=== PATIENT | female | born 1985 | race Caucasian/White ===

== ENCOUNTER 2017-09-18 18:00 | Emergency (ER) | payer OTHER ==
[2017-09-18 18:22] VITALS: BP 128/84
--- NOTE | 2017-09-18 18:41 | UC ---
Skin Complaint HPI - HPI Summary HPI Summary: Patient is to urgent care today with a red swollen tender area on her left lower extremity. She states she got an insect bite then the day after she dropped a [place] and then developed redness pain swelling medial aspect of her left lower calf. Patient reports tender to walk the erythemic area is not itchy - History of Current Complaint Chief Complaint: UCLowerExtremity Time Seen by Provider: 09/18/17 18:24 Stated Complaint: INSECT BITE - L LEG Hx Obtained From: Patient Hx Last Menstrual Period: 09/17/17 ?: No Onset/Duration: Sudden Onset, Lasting Days - 5 Timing: Constant Pain Intensity: 6 Pain Scale Used: 0-10 Numeric Location: Discrete - medial left lower calf Character: Swelling, Redness Aggravating Factor(s): Nothing Alleviating Factor(s): Nothing Associated Signs & Symptoms: Positive: Negative - Allergy/Home Medications Allergies/Adverse Reactions: Allergies Allergy/AdvReac Type Severity Reaction Status Date / Time Penicillins Allergy Unknown Verified 09/18/17 18:16 Reaction Details Home Medications: Home Medications Ibuprofen TAB* [Advil TAB*] 800 mg PO Q6H PRN 09/18/17 [History Confirmed ] Multivitamin [Multivitamins] 1 cap PO DAILY 09/18/17 [History Confirmed 09/18/17 ] Review of Systems Constitutional: Negative Skin: Negative Eyes: Negative ENT: Negative Respiratory: Negative Cardiovascular: Negative Gastrointestinal: Negative Genitourinary: Negative Motor: Negative Neurovascular: Negative Musculoskeletal: Calf Tenderness - left swollen tender lower leg Neurological: Negative Psychological: Negative Is Patient Immunocompromised?: No All Other Systems Reviewed And Are Negative: Yes PMH/Surg Hx/FS Hx/Imm Hx Previously Healthy: Yes - Surgical History Surgical History: Yes Surgery Procedure, Year, and Place: 3 c-sections - Family History Known Family History: Positive: None - Social History Occupation: Employed Full-time Lives: With Family Alcohol Use: Rare Substance Use Type: None Smoking Status (MU): Light Every Day Tobacco Smoker Type: Cigarettes Amount Used/How Often: 5-10 cigarettes daily Physical Exam Triage Information Reviewed: Yes Appearance: Well-Appearing, Pain Distress - mild, Obese Vital Signs: Initial Vital Signs Temp 97.9 F 09/18/17 18:18 Pulse 88 09/18/17 18:18 Resp 14 09/18/17 18:18 BP 128/84 09/18/17 18:18 Pulse Ox 100 09/18/17 18:18 Vital Signs Reviewed: Yes Eye Exam: Normal Eyes: Positive: Conjunctiva Clear ENT Exam: Normal ENT: Positive: Normal ENT inspection, Hearing grossly normal. Negative: Trismus , Muffled voice, Hoarse voice Dental Exam: Normal Neck exam: Normal Neck: Positive: Supple, Nontender Respiratory Exam: Normal Respiratory: Positive: Chest non-tender, Lungs clear. Negative: Respiratory distress Cardiovascular Exam: Normal Cardiovascular: Positive: RRR, No Murmur, Pulses Normal, Brisk Capillary Refill Musculoskeletal Exam: Other Musculoskeletal: Positive: Strength Intact, ROM Intact, Edema @ - left lower leg and foot Neurological Exam: Normal Neurological: Positive: Alert, Muscle Tone Normal Psychological Exam: Normal Skin Exam: Other Skin: Positive: Other - 10 cm area of erythema with tenderness-no weeping or open area Course/Dx - Course Course Of Treatment: to [facility] by private car for further evaluation - Diagnoses Provider Diagnoses: left lower extermity edema, nicotine dependent - Physician Notification/Consults Time Discussed With Above Provider: 18:35 - Nathaly Castillo Discharge - Sign-Out/Discharge Documenting (check all that apply): Patient Departure - Discharge Plan Condition: Stable Disposition: HOME-RECOMMEND TO ED Patient Education Materials: Leg Edema (ED) Referrals: Hayley Shankar MD [Primary Care Provider] - Additional Instructions: please go directly to the emergency department at [facility] for additional evaluation of your leg that we cannot perform at the urgent care tonight - Billing Disposition and Condition Condition: STABLE Disposition: Home-Recommend to ED
== END 2017-09-18 18:38 | disposition home health service (06) ==
LOC: UCCORT 18:00
DX: R60.0 Localized edema (principal); F17.210 Nicotine dependence, cigarettes, uncomplicated; Z88.0 Allergy status to penicillin
CPT/HCPCS: 99212; G0463

== ENCOUNTER 2017-11-12 08:57 | Emergency (ER) | payer OTHER ==
[2017-11-12 09:17] VITALS: BP 131/69
--- NOTE | 2017-11-12 09:55 | UC ---
Complaint Female HPI - HPI Summary HPI Summary: 32 YO FEMALE who comes to clinic today with the complaints of urinary frequency and dysuria for 5 days. She's had urinary tract infections before and she feels like this is a urinary tract infection. No fevers. No abnormal vaginal discharge. She does have some bilateral flank discomfort. He feels mildly ill. Bowels are normal. - History Of Current Complaint Chief Complaint: UCGU Stated Complaint: URINARY Time Seen by Provider: 11/12/17 09:44 Hx Last Menstrual Period: 10/16/17 Pain Intensity: 0 - Allergies/Home Medications Allergies/Adverse Reactions: Allergies Allergy/AdvReac Type Severity Reaction Status Date / Time Penicillins Allergy Unknown Verified 09/18/17 18:16 Reaction Details PMH/Surg Hx/FS Hx/Imm Hx Previously Healthy: Yes Other GI/ History: history of UTIs - Surgical History Surgical History: Yes Surgery Procedure, Year, and Place: 3 c-sections - Family History Known Family History: Positive: Cardiac Disease Family History: CANCER - Social History Alcohol Use: Rare Substance Use Type: None Smoking Status (MU): Light Every Day Tobacco Smoker Type: Cigarettes Amount Used/How Often: 5-10 cigarettes daily Review of Systems Constitutional: Fatigue Skin: Negative Eyes: Negative ENT: Negative Respiratory: Negative Cardiovascular: Negative Gastrointestinal: Negative Genitourinary: Dysuria, Frequency, Urgency, Other - Bilateral flank discomfort Motor: Negative Neurovascular: Negative Musculoskeletal: Negative Neurological: Negative Psychological: Negative Is Patient Immunocompromised?: No All Other Systems Reviewed And Are Negative: Yes Physical Exam Triage Information Reviewed: Yes Appearance: Well-Appearing, No Pain Distress, Well-Nourished Vital Signs: Initial Vital Signs Temp 97.3 F 11/12/17 09:07 Pulse 79 11/12/17 09:07 Resp 18 11/12/17 09:07 BP 131/69 11/12/17 09:07 Pulse Ox 100 11/12/17 09:07 Vital Signs Reviewed: Yes ENT Exam: Normal Neck exam: Normal Neck: Positive: Supple Respiratory: Positive: Lungs clear, Normal breath sounds, No respiratory distress Cardiovascular: Positive: RRR Abdomen Description: Positive: CVA Tenderness (R) - MILD, CVA Tenderness (L) - MILD, Other: - MILD SUPRAPUBIC TENDERNESS Bowel Sounds: Positive: Present Musculoskeletal Exam: Normal Musculoskeletal: Positive: Strength Intact, ROM Intact Neurological Exam: Normal Psychological Exam: Normal Skin Exam: Normal Complaint Female Dx - Course Course Of Treatment: Prescribed Bactrim DS by mouth twice a day for 10 days. Due to flank discomfort is a possibility of pyelonephritis. I discussed this with the patient and let her know that if her condition worsens she needs to get reevaluated right away in the emergency department. - Differential Dx/Diagnosis Provider Diagnoses: UTI Discharge - Sign-Out/Discharge Documenting (check all that apply): Patient Departure All imaging exams completed and their final reports reviewed: No Studies - Discharge Plan Condition: Stable Disposition: HOME Prescriptions: Sulfamethox/Trimethoprim DS* [Bactrim DS 800/160 TAB*] 1 tab PO BID #20 tab Patient Education Materials: Urinary Tract Infection in Women (ED) Referrals: Hayley Shankar MD [Primary Care Provider] - Additional Instructions: FOLLOW UP WITH YOUR DOCTOR IF NOT COMPLETELY IMPROVED. GET RECHECKED FOR ANY WORSENING OF YOUR CONDITION; PAIN, FEVER, YOU FEEL ILL OR QUESTIONS OR CONCERNS. - Billing Disposition and Condition Condition: STABLE Disposition: Home
--- NOTE | 2017-11-14 07:21 | UC ---
- Progress Note Progress Note: + staph saprophyticus Pt on Bactrim no change tacoj 11/14/17 Discharge - Sign-Out/Discharge Documenting (check all that apply): Post-Discharge Follow Up All imaging exams completed and their final reports reviewed: No Studies - Discharge Plan Condition: Stable Disposition: HOME Prescriptions: Sulfamethox/Trimethoprim DS* [Bactrim DS 800/160 TAB*] 1 tab PO BID #20 tab Patient Education Materials: Urinary Tract Infection in Women (ED) Referrals: Hayley Shankar MD [Primary Care Provider] - Additional Instructions: FOLLOW UP WITH YOUR DOCTOR IF NOT COMPLETELY IMPROVED. GET RECHECKED FOR ANY WORSENING OF YOUR CONDITION; PAIN, FEVER, YOU FEEL ILL OR QUESTIONS OR CONCERNS. - Billing Disposition and Condition Condition: STABLE Disposition: Home
== END 2017-11-12 10:00 | disposition home or self-care (01) ==
LOC: UCCORT 08:57
DX: R35.0 Frequency of micturition (principal); Z88.0 Allergy status to penicillin; Z87.440 Personal history of urinary (tract) infections; F17.210 Nicotine dependence, cigarettes, uncomplicated
CPT/HCPCS: 81003; 84702; 87077; 87086; 99212; G0463

== ENCOUNTER 2018-05-01 07:37 | Emergency (ER) | payer OTHER ==
[2018-05-01 07:50] VITALS: BP 101/66
--- NOTE | 2018-05-01 07:54 | UC ---
Throat Pain/Nasal Dawit HPI - HPI Summary HPI Summary: 32 yo female with sore throat x <24 hours ADDISON muscle aches - History of Current Complaint Chief Complaint: UCGeneralIllness Stated Complaint: ST Time Seen by Provider: 05/01/18 07:51 Hx Obtained From: Patient Hx Last Menstrual Period: 03/30/18 Onset/Duration: Gradual Onset, Lasting Hours Severity: Mild Pain Intensity: 4 Pain Scale Used: 0-10 Numeric - Epiglottits Risk Factors Epiglottis Risk Factors: Negative - Allergies/Home Medications Allergies/Adverse Reactions: Allergies Allergy/AdvReac Type Severity Reaction Status Date / Time bee venom protein (honey bee) Allergy Swelling Verified 05/01/18 07:46 Penicillins Allergy Unknown Verified 05/01/18 07:46 Reaction Details Home Medications: Home Medications Ibuprofen TAB* [Advil TAB*] 800 mg PO Q6H PRN 05/01/18 [History Confirmed ] PMH/Surg Hx/FS Hx/Imm Hx Previously Healthy: Yes - Surgical History Surgical History: Yes Surgery Procedure, Year, and Place: 3 c-sections - Family History Known Family History: Positive: Cardiac Disease, Hypertension, Diabetes Family History: CANCER - Social History Alcohol Use: Rare Substance Use Type: None Smoking Status (MU): Light Every Day Tobacco Smoker Type: Cigarettes Amount Used/How Often: ~1/3 PPD Length of Time of Smoking/Using Tobacco: Since Age 17 Review of Systems All Other Systems Reviewed And Are Negative: Yes Constitutional: Positive: Fatigue Skin: Positive: Negative Eyes: Positive: Negative ENT: Positive: Sore Throat Respiratory: Positive: Negative Cardiovascular: Positive: Negative Gastrointestinal: Positive: Negative Genitourinary: Positive: Negative Motor: Positive: Negative Neurovascular: Positive: Negative Musculoskeletal: Positive: Myalgia Neurological: Positive: Headache Psychological: Positive: Negative Physical Exam Triage Information Reviewed: Yes Appearance: Well-Appearing, No Pain Distress, Well-Nourished Vital Signs: Initial Vital Signs Temp 98.2 F 05/01/18 07:44 Pulse 92 05/01/18 07:44 Resp 18 05/01/18 07:44 BP 101/66 05/01/18 07:44 Pulse Ox 98 05/01/18 07:44 Vital Signs Reviewed: Yes Eyes: Positive: Conjunctiva Clear ENT: Positive: Hearing grossly normal, Pharyngeal erythema, Tonsillar swelling, Tonsillar exudate. Negative: Nasal congestion, Nasal drainage, Trismus, Muffled voice, Hoarse voice Neck: Positive: Supple, Nontender Respiratory: Positive: Lungs clear, Normal breath sounds, No respiratory distress Cardiovascular: Positive: RRR Abdomen Description: Positive: Nontender Musculoskeletal: Positive: ROM Intact, No Edema Neurological: Positive: Alert Psychological Exam: Normal Skin Exam: Normal Throat Pain/Nasal Course/Dx - Course Course Of Treatment: strep (+) - Differential Dx/Diagnosis Provider Diagnosis: Strep sore throat Discharge - Sign-Out/Discharge Documenting (check all that apply): Patient Departure All imaging exams completed and their final reports reviewed: No Studies - Discharge Plan Condition: Stable Disposition: HOME Prescriptions: Cephalexin CAP* [Keflex CAP*] 500 mg PO BID #20 cap Patient Education Materials: Strep Throat (ED) Referrals: Hayley Shankar MD [Primary Care Provider] - 3 Days (if not better) Additional Instructions: rest fluids - Billing Disposition and Condition Condition: STABLE Disposition: Home
== END 2018-05-01 08:10 | disposition home or self-care (01) ==
LOC: UCCORT 07:37
DX: J02.0 Streptococcal pharyngitis (principal); Z91.030 Bee allergy status; Z88.0 Allergy status to penicillin; F17.210 Nicotine dependence, cigarettes, uncomplicated
CPT/HCPCS: 87651; 99212; G0463

== ENCOUNTER 2018-05-07 13:55 | Emergency (ER) | payer OTHER ==
[2018-05-07 15:48] VITALS: BP 148/63
--- NOTE | 2018-05-07 15:56 | UC ---
FLU HPI - HPI Summary HPI Summary: 32-year-old female presents with 3-4 day history of fever, chills, general malaise, body aches, nasal congestion, runny nose, sore throat, and a nonproductive cough. She was evaluated at this facility on 05/01/2018 for strep throat and is currently on cephalexin. States her symptoms were improving until the onset of her current symptoms. She was evaluated in the emergency room at [facility] last night for same. She was diagnosed with influenza based on her symptoms, was prescribed Tessalon Perles and albuterol inhaler for her symptoms which she has not yet picked up from the pharmacy. States that she is here today for a second opinion. Denies ear pain , dysphagia, chest pain, shortness of breath, abdominal pain, nausea, vomiting, or diarrhea. - History of Current Complaint Chief Complaint: UCGeneralIllness Stated Complaint: COUGH, FEVER, CONGESTION Time Seen by Provider: 05/07/18 15:52 Hx Obtained From: Patient Hx Last Menstrual Period: 04/30/18 Pain Intensity: 7 - Allergy/Home Medications Allergies/Adverse Reactions: Allergies Allergy/AdvReac Type Severity Reaction Status Date / Time bee venom protein (honey bee) Allergy Swelling Verified 05/07/18 15:46 Penicillins Allergy Unknown Verified 05/07/18 15:46 Reaction Details PMH/Surg Hx/FS Hx/Imm Hx Previously Healthy: Yes - Denies significant PMH - Surgical History Surgical History: Yes Surgery Procedure, Year, and Place: 3 c-sections - Family History Known Family History: Positive: None, Cardiac Disease, Hypertension, Diabetes Family History: CANCER - Social History Occupation: Employed Full-time Lives: With Family Alcohol Use: Rare Substance Use Type: None Smoking Status (MU): Light Every Day Tobacco Smoker Type: Cigarettes Amount Used/How Often: ~1/3 PPD Length of Time of Smoking/Using Tobacco: Since Age 17 Review of Systems All Other Systems Reviewed And Are Negative: Yes Constitutional: Positive: Fever, Chills, Fatigue Skin: Negative: Rash Eyes: Negative: Drainage, Eye Redness ENT: Positive: Sore Throat, Nasal Discharge, Sinus Congestion. Negative: Ear Ache, Sinus Pain/Tenderness Respiratory: Positive: Cough. Negative: Shortness Of Breath Cardiovascular: Negative: Palpitations, Chest Pain Gastrointestinal: Negative: Abdominal Pain, Vomiting, Diarrhea, Nausea Genitourinary: Positive: Negative Musculoskeletal: Positive: Myalgia Neurological: Positive: Negative Is Patient Immunocompromised?: No Physical Exam - Summary Physical Exam Summary: GENERAL APPEARANCE: Well developed, well nourished, alert and cooperative, and appears to be in no acute distress. EYES: Conjunctiva clear. No drainage. Vision is grossly intact. EARS: External auditory canals and tympanic membranes clear, hearing grossly intact. NOSE: Mild-moderate nasal congestion. No nasal discharge. THROAT: Mild pharyngeal erythema. No tonsilar inflammation, swelling, exudate, or lesions. Uvula midline. Oral cavity normal. Teeth and gingiva in good general condition. NECK: Neck supple, non-tender without lymphadenopathy. CARDIAC: Normal S1 and S2. No S3, S4 or murmurs. Rhythm is regular. There is no peripheral edema, cyanosis or pallor. Extremities are warm and well perfused. Capillary refill is less than 2 seconds. Peripheral pulses intact. LUNGS: Clear to auscultation without rales, rhonchi, wheezing or diminished breath sounds. Dry, non-productive cough ABDOMEN: Positive bowel sounds. Soft, nondistended, nontender. No guarding or rebound. No masses or hepatosplenomegally. MUSKULOSKELETAL: ROM intact to all extremities. No joint erythema or tenderness. Normal muscular development. Normal gait. SKIN: Skin normal color, texture and turgor with no lesions or eruptions. Triage Information Reviewed: Yes Vital Signs: Initial Vital Signs Temp 99.1 F 05/07/18 15:44 Pulse 94 05/07/18 15:44 Resp 17 05/07/18 15:44 BP 148/63 05/07/18 15:44 Pulse Ox 98 05/07/18 15:44 Vital Signs Reviewed: Yes Flu Course/Dx - Course Course Of Treatment: 32-year-old female presents with 3-4 day history of fever, chills, general malaise, body aches, nasal congestion, runny nose, sore throat, and a nonproductive cough. She was evaluated at this facility on 05/01/2018 for strep throat and is currently on cephalexin. States her symptoms were improving until the onset of her current symptoms. She was evaluated in the emergency room at [facility] last night for same. She was diagnosed with influenza based on her symptoms, was prescribed Tessalon Perles and albuterol inhaler for her symptoms which she has not yet picked up from the pharmacy. States that she is here today for a second opinion. Denies ear pain , dysphagia, chest pain, shortness of breath, abdominal pain, nausea, vomiting, or diarrhea. Afebrile. Vital signs stable. Exam reveals an adult female in no acute distress with mild to moderate nasal congestion, mild pharyngeal erythema, clear bilateral breath sounds, a dry nonproductive cough, otherwise unremarkable exam. Discussed with the patient that based on her history and exam her symptoms are likely influenza although could be another viral illness. Flu testing was offered however patient was counseled that regardless of the results the treatment would remain confined to symptomatic treatment as she is outside of the window for Tamiflu. Patient declined testing at this time. 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 She is to follow-up with her primary care provider in 5 days if symptoms do not improve. Anticipatory guidance and warning symptoms were reviewed with the patient. Verbalizes understanding and agrees with plan of care. - Differential Dx/Diagnosis Differential Diagnosis/HQI/PQRI: Bronchitis, Influenza, Pneumonia, Upper Respiratory Infection Provider Diagnosis: Influenza Discharge - Sign-Out/Discharge Documenting (check all that apply): Patient Departure All imaging exams completed and their final reports reviewed: No Studies - Discharge Plan Condition: Stable Disposition: HOME Patient Education Materials: Influenza (ED) Referrals: Hayley Shankar MD [Primary Care Provider] - 5 Days (If no improvement in your symptoms.) Additional Instructions: Based on your history and exam your symptoms are most likely influenza although it could be from another viral infection. Flu typically runs its course over 7- 10 days with the first 3-5 days being the worst of the symptoms. Get plenty of rest. Drink plenty of fluids to avoid dehydration especially if you are running any fever. Take over the counter acetaminophen (Tylenol) or ibuprofen (Advil, Motrin) according to directions as needed for pain or fever. Use the Tessalon Perles that were prescribed to you in the emergency room as directed for the cough. Use the albuterol inhaler that was prescribed to you in the emergency room as directed for any shortness of breath. You can try using an over the counter decongestant such as Sudafed according to directions to help with the nasal congestion. Use salt water gargles several times a day if you have a sore throat. You may also use Chloraseptic spray or Cepacol lonzenges according to directions which contain a numbing medication and can provide some temporary relief from your sore throat. Follow up with your primary care provider in 5 days if symptoms persist. Seek immediate medical attention in the emergency room if you have fever greater than 100.5 F despite taking acetaminophen or ibuprofen, have chest pain , difficulty breathing, are unable to swallow, or have any worsening of symptoms. - Billing Disposition and Condition Condition: STABLE Disposition: Home
== END 2018-05-07 16:20 | disposition home or self-care (01) ==
LOC: UCCORT 13:55
DX: J11.1 Influenza due to unidentified influenza virus with other respiratory manifestations (principal); F17.210 Nicotine dependence, cigarettes, uncomplicated; Z91.030 Bee allergy status; Z88.0 Allergy status to penicillin
CPT/HCPCS: 99211; G0463

== ENCOUNTER 2018-07-23 10:49 | Emergency (ER) | payer OTHER ==
--- NOTE | 2018-07-23 11:12 | UC ---
Complaint Female HPI - HPI Summary HPI Summary: 32 y/o female presents to the urgent care c/o frequency adn burning on urination w/ difficulty emptying her bladder completely for the past week. Pt reports pain on urination is 4/10 and feels bladder pressure. Pt has not taking anything to alleviate symptoms. She has been drinking water. LMP:06/26/2018 w/ irregular menstrual cycles. Pt states recurrent UTI's in the past year and would like to have a Urologists referral. Pt denies fever, vaginal discharge, pelvic pain, lower back pain, flank pain,SOB, chest pain, abdominal pain, N/V/ D. - History Of Current Complaint Stated Complaint: URINARY Time Seen by Provider: 07/23/18 11:11 Hx Obtained From: Patient Hx Last Menstrual Period: 04/30/18 Onset/Duration: Gradual Onset, Lasting Weeks - 1 week, Still Present, Worse Since - yesterday Timing: Intermittent, Lasting Seconds Severity Initially: Mild Severity Currently: Mild Pain Intensity: 4 Pain Scale Used: 0-10 Numeric Character: Burning Aggravating Factor(s): Urination Alleviating Factor(s): Nothing Associated Signs And Symptoms: Positive: Negative. Negative: Fever, Back Pain, Vaginal Discharge Related Hx: Similar Episode/Dx as: - recurrent UTI in the past year - Allergies/Home Medications Allergies/Adverse Reactions: Allergies Allergy/AdvReac Type Severity Reaction Status Date / Time bee venom protein (honey bee) Allergy Swelling Verified 07/23/18 11:13 Penicillins Allergy Unknown Verified 07/23/18 11:13 Reaction Details Home Medications: Home Medications Multivitamin [Multivitamins] 1 cap PO DAILY 07/23/18 [History Confirmed 07/23/18 ] PMH/Surg Hx/FS Hx/Imm Hx Previously Healthy: Yes - Pt denies PMHX - Surgical History Surgical History: Yes Surgery Procedure, Year, and Place: 3 c-sections - Family History Known Family History: Positive: Cardiac Disease, Hypertension, Diabetes Family History: Bladder CANCER - Social History Occupation: Employed Full-time Lives: With Family Alcohol Use: Rare Substance Use Type: None Smoking Status (MU): Light Every Day Tobacco Smoker Type: Cigarettes Amount Used/How Often: ~1/3 PPD Length of Time of Smoking/Using Tobacco: Since Age 17 Review of Systems All Other Systems Reviewed And Are Negative: Yes Constitutional: Positive: Negative Skin: Positive: Negative Eyes: Positive: Negative ENT: Positive: Negative Respiratory: Positive: Negative Cardiovascular: Positive: Negative Gastrointestinal: Positive: Negative Genitourinary: Positive: Dysuria, Frequency, Urgency Motor: Positive: Negative Neurovascular: Positive: Negative Musculoskeletal: Positive: Negative Neurological: Positive: Negative Psychological: Positive: Negative Is Patient Immunocompromised?: No Physical Exam - Summary Physical Exam Summary: VITAL SIGNS: Reviewed. GENERAL: Patient is a well developed and nourished obese female who is sitting comfortable in the examining table. Patient is not in any acute respiratory distress. HEAD AND FACE: No signs of trauma. No ecchymosis, hematomas or skull depressions. No sinus tenderness. EYES: PERRLA, EOMI x 2, No injected conjunctiva, clear watery eyes, no nystagmus. No photophobia. EARS: Hearing grossly intact. Ear canals and tympanic membranes are within normal limits. MOUTH: pharynx with no erythema, no exudates,no palatal petechiae. no B/L tonsillar enlargement Uvula in midline. NECK: Supple, trachea is midline, no lymphadenopathy, no JVD, no carotid bruit, no c-spine tenderness, neck with full ROM. CHEST: Symmetric, no tenderness at palpation LUNGS: Clear to auscultation bilaterally. No wheezing or crackles. CVS: Regular rate and rhythm, S1 and S2 present, no murmurs or gallops appreciated. ABDOMEN: Soft, non-tender. No signs of distention. No rebound no guarding, and no masses palpated. Bowel sounds are normal. BACK:no scoliosis or lesions, non tender to palpation, No B/L CVA tenderness EXTREMITIES: FROM in all major joints, no edema, no cyanosis or clubbing. NEURO: Alert and oriented x 3. No acute neurological deficits. Speech is normal and follows commands. SKIN: Dry and warm Triage Information Reviewed: Yes Complaint Female Dx - Course Course Of Treatment: 32 y/o female presents to the urgent care c/o frequency adn burning on urination w/ difficulty emptying her bladder completely for the past week. Pt reports pain on urination is 4/10 and feels bladder pressure. Pt has not taking anything to alleviate symptoms. She has been drinking water. LMP:06/26/2018 w/ irregular menstrual cycles. Pt states recurrent UTI's in the past year and would like to have a Urologists referral. Pt denies fever, vaginal discharge, pelvic pain, lower back pain, flank pain,SOB, chest pain, abdominal pain, N/V/ D. Hx obtained. PE: WNL. UA and test ordered. UA results: Blood trace +, Nitrates +, Leukoesterase trace+. test: negative. Pt Rx Bactrim PO x 7 days. Pyridium 100mg PO TID x 2 days. Advised to increase fluid intake. Urine sent for culture if any abnormality Pt will be notified for further treatment. Pt advised If symptoms do not improve to return to the urgent care or f/u with PCP. Pt understood and agreed. Left the clinic ambulating. - Differential Dx/Diagnosis Differential Diagnosis/HQI/PQRI: Cervicitis, Renal Colic, Ureteral Stone, Urinary Tract Infection Provider Diagnosis: UTI (urinary tract infection) Discharge - Sign-Out/Discharge Documenting (check all that apply): Patient Departure - D/C home All imaging exams completed and their final reports reviewed: No Studies - Discharge Plan Condition: Stable Disposition: HOME Prescriptions: Phenazopyridine TAB* [Pyridium 100 mg TAB*] 100 mg PO TID #6 tab Sulfamethox/Trimethoprim DS* [Bactrim DS 800/160 TAB*] 1 tab PO BID #14 tab Patient Education Materials: Urinary Tract Infection in Women (ED) Referrals: Hayley Shankar MD [Primary Care Provider] - 3 Days Neil Guerrero MD [Medical Doctor] - If Needed Additional Instructions: 1- Please take Bactrim PO x 7 days. Pyridium 100 mg PO TID x 2 days to alleviate urinary symptoms. Increase increase fluid intake. drink cranberry juice. 2-Urine sent for culture if any abnormality, you will be notified for further treatment. 3-If symptoms do not improve please f/u with her PCP or Urologist DR Payne. - Billing Disposition and Condition Condition: STABLE Disposition: Home
[2018-07-23 11:21] VITALS: BP 104/63
== END 2018-07-23 11:44 | disposition home or self-care (01) ==
LOC: UCCORT 10:49
DX: N39.0 Urinary tract infection, site not specified (principal); F17.210 Nicotine dependence, cigarettes, uncomplicated; Z91.030 Bee allergy status; Z88.0 Allergy status to penicillin
CPT/HCPCS: 81003; 84702; 87077; 87086; 87186; 99212; G0463

== ENCOUNTER 2018-12-03 09:06 | Emergency (ER) | payer OTHER ==
[2018-12-03 10:07] VITALS: BP 122/55
--- NOTE | 2018-12-03 10:23 | UC ---
Complaint Female HPI - HPI Summary HPI Summary: Pt presents with concern of vaginal itching and burning and occasional white discharge X 3 weeks. Pt is also concerned for possible STI infection. She reports that she has a new sexual partner. - History Of Current Complaint Chief Complaint: UCGU Stated Complaint: PERSONAL/URINARY COMPLAINT Time Seen by Provider: 12/03/18 10:07 Hx Obtained From: Patient Hx Last Menstrual Period: 11/15/18 ?: No Onset/Duration: Sudden Onset, Still Present Timing: Intermittent Severity Initially: Mild Severity Currently: Mild Pain Intensity: 0 Character: Dull, Burning Aggravating Factor(s): Nothing Alleviating Factor(s): Nothing Associated Signs And Symptoms: Positive: Vaginal Discharge - Risk Factors Ectopic Risk Factor: Tubal Ligation Ovarian Torsion Risk Factor: Tubal Ligation - Allergies/Home Medications Allergies/Adverse Reactions: Allergies Allergy/AdvReac Type Severity Reaction Status Date / Time bee venom protein (honey bee) Allergy Swelling Verified 12/03/18 09:57 Penicillins Allergy Unknown Verified 12/03/18 09:57 Reaction Details PMH/Surg Hx/FS Hx/Imm Hx Previously Healthy: Yes - Surgical History Surgical History: Yes Surgery Procedure, Year, and Place: 3 c-sections. TUBAL LIGATION. CHOLYCYSTECTOMY - Family History Known Family History: Positive: None, Cardiac Disease, Hypertension, Diabetes Family History: Bladder CANCER - Social History Occupation: Employed Full-time Lives: With Family Alcohol Use: Rare Substance Use Type: None Smoking Status (MU): Current Some Day Smoker Type: Cigarettes Amount Used/How Often: 3 CIGS A MONTH Length of Time of Smoking/Using Tobacco: Since Age 17 Have You Smoked in the Last Year: Yes Review of Systems All Other Systems Reviewed And Are Negative: Yes Constitutional: Positive: Negative Skin: Positive: Negative Eyes: Positive: Negative ENT: Positive: Negative Respiratory: Positive: Negative Cardiovascular: Positive: Negative Gastrointestinal: Positive: Negative Genitourinary: Positive: Vaginal/Penile Itching, Vaginal/Penile Discharge Motor: Positive: Negative Neurovascular: Positive: Negative Musculoskeletal: Positive: Negative Neurological: Positive: Negative Psychological: Positive: Negative Is Patient Immunocompromised?: No Physical Exam Triage Information Reviewed: Yes Appearance: Well-Appearing Vital Signs: Initial Vital Signs Temp 98.8 F 12/03/18 09:59 Pulse 100 12/03/18 09:59 Resp 16 12/03/18 09:59 BP 122/55 12/03/18 09:59 Pulse Ox 100 12/03/18 09:59 Vital Signs Reviewed: Yes Eye Exam: Normal ENT Exam: Normal Dental Exam: Normal Neck exam: Normal Respiratory Exam: Normal Cardiovascular Exam: Normal Abdominal Exam: Normal Abdomen Description: Positive: Nontender Pelvic Exam: Positive: Other - pt opted for self swab Musculoskeletal Exam: Normal Neurological Exam: Normal Psychological Exam: Normal Skin Exam: Normal Complaint Female Dx - Course Course Of Treatment: I discussed the tests I ordered and the time frame necessary for results. Pt was given option to have stock tracer exam and she selected self swabbing for Affirm testing. - Differential Dx/Diagnosis Differential Diagnosis/HQI/PQRI: Sexually Transmitted Disease, Urinary Tract Infection Provider Diagnosis: Itching in the vaginal area Discharge ED - Sign-Out/Discharge Documenting (check all that apply): Patient Departure All imaging exams completed and their final reports reviewed: No Studies - Discharge Plan Condition: Stable Disposition: HOME Patient Education Materials: Vaginitis (ED) Referrals: Hayley Shankar MD [Primary Care Provider] - If Needed Additional Instructions: Please follow up with your PCP as soon as possible. Your lab results will not be available until 3-4 days. - Billing Disposition and Condition Condition: STABLE Disposition: Home - Attestation Statements Provider Attestation: Per institutional requirements, I have reviewed the chart, however, I was not consulted specifically or made aware of this patient by the midlevel provider. I did not personally evaluate, interact with , or disposition this patient.
[2018-12-04 12:46] LABS: Chlamydia trachomatis NAA Negative (Negative); Neisseria gonorrhoeae (GC) NAA Negative (Negative)
--- NOTE | 2018-12-05 07:25 | UC ---
- Progress Note Progress Note: Neg GC/CH Neg trich neg Joann + garnderella Flagyl sent to pharmacy please notify pt of all results - alcohol precaution 48 hours before and after flagy Ljj Course/Dx - Diagnoses Provider Diagnoses: Itching in the vaginal area Discharge ED - Sign-Out/Discharge Documenting (check all that apply): Post-Discharge Follow Up All imaging exams completed and their final reports reviewed: No Studies - Discharge Plan Condition: Stable Disposition: HOME Prescriptions: metroNIDAZOLE [Flagyl] 500 mg PO BID #14 tablet Patient Education Materials: Vaginitis (ED) Referrals: Hayley Shankar MD [Primary Care Provider] - If Needed Additional Instructions: Please follow up with your PCP as soon as possible. Your lab results will not be available until 3-4 days. - Billing Disposition and Condition Condition: STABLE Disposition: Home
== END 2018-12-03 10:42 | disposition home or self-care (01) ==
LOC: UCCORT 09:06
DX: N89.8 Other specified noninflammatory disorders of vagina (principal); F17.210 Nicotine dependence, cigarettes, uncomplicated; Z91.030 Bee allergy status; Z88.0 Allergy status to penicillin
CPT/HCPCS: 81003; 87480; 87491; 87510; 87591; 87660; 99211; G0463

== ENCOUNTER 2019-01-12 09:15 | Emergency (ER) | payer OTHER ==
[2019-01-12 11:37] VITALS: BP 115/88
--- NOTE | 2019-01-12 11:53 | UC ---
- HPI Summary HPI Summary: Pt presents with c/o gradual onset of swelling, tenderness and purulent discharge from left nipple at nipple piercing site. Pt reports that she recently changed the nipple ring to a new ring and now has redness, tenderness, purulent discharge from site. Denies fever, chills, palpable mass or risk of . Pt has had nipple pierced for 2-3 years. - History of Current Complaint Breast Chief Complaint: Pain, Drainage, Nipple, Left, Wound Onset/Duration: Started Days Ago, Atraumatic, Still Present Timing: Constant Breast Pain Aggravating Factors: Pressure Breast Associated Signs/Symptoms: Discharge, Redness - Allergy/Home Medications Allergies/Adverse Reactions: Allergies Allergy/AdvReac Type Severity Reaction Status Date / Time bee venom protein (honey bee) Allergy Swelling Verified 01/12/19 11:31 Penicillins Allergy Unknown Verified 01/12/19 11:31 Reaction Details Home Medications: Home Medications Ibuprofen TAB* [Advil TAB*] 600 mg PO Q6H PRN 01/12/19 [History Confirmed ] PMH/Surg Hx/FS Hx/Imm Hx Previously Healthy: Yes - Surgical History Surgical History: Yes Surgery Procedure, Year, and Place: 3 c-sections. TUBAL LIGATION. CHOLYCYSTECTOMY - Family History Known Family History: Positive: None, Cardiac Disease, Hypertension, Diabetes Family History: Bladder CANCER - Social History Occupation: Employed Full-time Lives: With Family Alcohol Use: Rare Substance Use Type: None Smoking Status (MU): Current Some Day Smoker Type: Cigarettes Amount Used/How Often: 2 cigs/day Length of Time of Smoking/Using Tobacco: Since Age 17 Have You Smoked in the Last Year: Yes - Immunization History Vaccination Up to Date: Yes Review of Systems All Other Systems Reviewed And Are Negative: Yes Constitutional: Positive: Negative Skin: Positive: Other - swelling, tendernes and purulent discharge. Eyes: Positive: Negative ENT: Positive: Negative Respiratory: Positive: Negative Cardiovascular: Positive: Negative Gastrointestinal: Positive: Negative Genitourinary: Positive: Negative Motor: Positive: Negative Neurovascular: Positive: Negative Musculoskeletal: Positive: Negative Neurological: Positive: Negative Psychological: Positive: Negative Is Patient Immunocompromised?: No Physical Exam Triage Information Reviewed: Yes Appearance: Pain Distress Vital Signs: Initial Vital Signs Temp 97.8 F 01/12/19 11:32 Pulse 79 01/12/19 11:32 Resp 17 01/12/19 11:32 BP 115/88 01/12/19 11:32 Pulse Ox 100 01/12/19 11:32 Vital Signs Reviewed: Yes Eye Exam: Normal ENT Exam: Normal ENT: Positive: Hearing grossly normal Dental Exam: Normal Neck exam: Normal Respiratory: Positive: No respiratory distress Musculoskeletal Exam: Normal Neurological Exam: Normal Psychological Exam: Normal Skin Exam: Other - small amount of purulent discharge from left nipple, nipple ring in place, pt c/o tenderness with palpation, mild erythema and swelling. Breast Pain Course/Dx - Differential Diagnoses Differential Diagnosis/HQI/PQRI: Breast Abscess - Diagnoses Provider Diagnoses: Infected piercing of trunk Discharge ED - Sign-Out/Discharge Documenting (check all that apply): Patient Departure All imaging exams completed and their final reports reviewed: No Studies - Discharge Plan Condition: Stable Disposition: HOME Prescriptions: DOXYcycline CAP(*) [DOXYcycline 100MG CAP(*)] 100 mg PO Q12H #20 cap Patient Education Materials: Wound Infection (ED) Referrals: Hayley Shankar MD [Primary Care Provider] - If Needed - Billing Disposition and Condition Condition: STABLE Disposition: Home
== END 2019-01-12 12:14 | disposition home or self-care (01) ==
LOC: UCCORT 09:15
DX: L76.82 Other postprocedural complications of skin and subcutaneous tissue (principal); F17.210 Nicotine dependence, cigarettes, uncomplicated; Z88.0 Allergy status to penicillin; Z91.030 Bee allergy status; Y83.8 Other surgical procedures as the cause of abnormal reaction of the patient, or of later complication, without mention of misadventure at the time of the procedure
CPT/HCPCS: 87070; 87205; 87640; 87641; 99212; G0463

== ENCOUNTER 2019-02-11 07:10 | Emergency (ER) | payer OTHER ==
[2019-02-11 07:19] VITALS: BP 117/74
[2019-02-11] MEDS ORDERED: Cephalexin CAP* 500 MG PO ONE (07:32)
--- NOTE | 2019-02-11 07:34 | UC ---
Throat Pain/Nasal Dawit HPI - HPI Summary HPI Summary: 33 yo female with sore throat since last PM her friend was recently dx with strep no f/c + ADDISON and mylagias no n/v - History of Current Complaint Chief Complaint: UCGeneralIllness Stated Complaint: ST Time Seen by Provider: 02/11/19 07:22 Hx Obtained From: Patient Hx Last Menstrual Period: 02/09/19 Onset/Duration: Gradual Onset, Still Present Severity: Moderate Pain Intensity: 7 Pain Scale Used: 0-10 Numeric Cough: None - Epiglottits Risk Factors Epiglottis Risk Factors: Negative - Allergies/Home Medications Allergies/Adverse Reactions: Allergies Allergy/AdvReac Type Severity Reaction Status Date / Time bee venom protein (honey bee) Allergy Swelling Verified 02/11/19 07:19 Penicillins Allergy Rash Verified 02/11/19 07:19 PMH/Surg Hx/FS Hx/Imm Hx Previously Healthy: Yes - Surgical History Surgical History: Yes Surgery Procedure, Year, and Place: 3 c-sections. TUBAL LIGATION. CHOLYCYSTECTOMY - Family History Known Family History: Positive: Cardiac Disease, Hypertension, Diabetes Family History: Bladder CANCER - Social History Alcohol Use: Rare Substance Use Type: None Smoking Status (MU): Current Some Day Smoker Type: Cigarettes Amount Used/How Often: 2 cigs/day Length of Time of Smoking/Using Tobacco: Since Age 17 Have You Smoked in the Last Year: Yes - Immunization History Vaccination Up to Date: Yes Review of Systems All Other Systems Reviewed And Are Negative: Yes Constitutional: Positive: Negative Skin: Positive: Negative Eyes: Positive: Negative ENT: Positive: Sore Throat Respiratory: Positive: Negative Cardiovascular: Positive: Negative Gastrointestinal: Positive: Negative Genitourinary: Positive: Negative Motor: Positive: Negative Neurovascular: Positive: Negative Musculoskeletal: Positive: Negative Neurological: Positive: Negative Psychological: Positive: Negative Physical Exam Triage Information Reviewed: Yes Appearance: Well-Appearing, No Pain Distress, Well-Nourished Vital Signs: Initial Vital Signs Temp 98.0 F 02/11/19 07:17 Pulse 105 02/11/19 07:17 Resp 18 02/11/19 07:17 BP 117/74 02/11/19 07:17 Pulse Ox 99 02/11/19 07:17 Vital Signs Reviewed: Yes Eyes: Positive: Conjunctiva Clear ENT: Positive: Hearing grossly normal, Pharyngeal erythema, Tonsillar swelling, Tonsillar exudate, Uvula midline. Negative: Nasal congestion, Nasal drainage, Trismus, Muffled voice Neck: Positive: Supple, Nontender, Enlarged Nodes @ - ant cerv Respiratory: Positive: Lungs clear, Normal breath sounds, No respiratory distress, No accessory muscle use Cardiovascular: Positive: RRR, No Murmur Musculoskeletal: Positive: ROM Intact, No Edema Neurological: Positive: Alert Psychological Exam: Normal Skin Exam: Normal Throat Pain/Nasal Course/Dx - Differential Dx/Diagnosis Provider Diagnosis: Strep throat Discharge ED - Sign-Out/Discharge Documenting (check all that apply): Patient Departure All imaging exams completed and their final reports reviewed: No Studies - Discharge Plan Condition: Stable Disposition: HOME Prescriptions: Cephalexin CAP* [Keflex CAP*] 500 mg PO BID #19 cap Patient Education Materials: Strep Throat (ED) Referrals: Hayley Shankar MD [Primary Care Provider] - 4 Days (if not better) - Billing Disposition and Condition Condition: STABLE Disposition: Home
== END 2019-02-11 07:42 | disposition home or self-care (01) ==
LOC: UCCORT 07:10
DX: J02.0 Streptococcal pharyngitis (principal); F17.210 Nicotine dependence, cigarettes, uncomplicated; Z88.0 Allergy status to penicillin; Z91.030 Bee allergy status
CPT/HCPCS: 87651; 99212; A9270-GY; G0463